=== PATIENT | female | born 1955 | race Caucasian/White ===

== ENCOUNTER 2016-11-29 10:44 | Emergency (ER) | payer OTHER ==
[~2016-11-29 10:44] MED LIST: ATEN25 PO; CAT1 PO; HYGROTON 25 MG25 MG OR; KLOR-CON M2020 MEQ PO; LOPID6 PO; PLAVIX PO; PRAVACHOL80 MG PO; PRILO PO; PROAIR HFA INH; VERELAN240 MG PO
[2017-02-21] MEDS ORDERED: ISOPTIN SR240 MG PO (23:08)
[2017-02-21] MEDS ORDERED: PLAVIX PO (23:08)
[2017-02-21] MEDS ORDERED: MACRODANTIN 10100 MG PO (23:09)
[2017-02-21] MEDS ORDERED: PRILOSEC OTC20 MG PO (23:09)
[2017-02-21] MEDS ORDERED: REMICADE IV (23:11)
[2017-02-21] MEDS ORDERED: MOBIC7.5 PO (23:11)
[2017-02-21] MEDS ORDERED: WELLSR150 PO (23:14)
[2017-02-27] MEDS ORDERED: C5 PO (17:04)
[2017-02-27] MEDS ORDERED: OXYCOD PO (17:04)
== END 2016-11-29 10:48 | disposition home or self-care (01) ==
LOC: ER 10:44
DX: R59.0 Localized enlarged lymph nodes (principal); Z88.0 Allergy status to penicillin; Z88.5 Allergy status to narcotic agent; Z88.8 Allergy status to other drugs, medicaments and biological substances; Z79.899 Other long term (current) drug therapy
CPT/HCPCS: 99283